=== PATIENT | female | born 1980 | race Caucasian/White ===

== ENCOUNTER 2016-06-01 12:28 | Emergency (ER) | payer BC, OTHER ==
[~2016-06-01] VITALS: Ht 157.5 cm; Wt 49.0 kg
[~2016-06-01 12:28] MED LIST: HYDR-3580 PO; HYOS0.1251 OR; OXYC1TAB13 PO; PROT40TA PO; Z.0.BCPILL PO; ZOFR4TAB3 SL
[2016-06-01 12:34] VITALS: BP 125/73; PULSE 90; RESP 16; TEMP 98.7; O2SAT 99
[2016-06-01] MEDS ORDERED: SODIUM CHLOR 0.9% 1000 ML INJ 1,000 ML IV SCH (13:07)
[2016-06-01 13:15] LABS: AUTOMATED NEUTROPHIL # 10.8 TH/MM3 (1.8-7.7); BASOPHIL # 0.1 TH/MM3 (0-0.2); BASOPHIL % 1.1 % (0.0-2.0); EOSINOPHIL % 0.2 % (0.0-4.0); HEMATOCRIT 40.8 % (35.0-46.0); LYMPH % 4.7 % (9.0-44.0); LYMPHOCYTE # 0.6 TH/MM3 (1.0-4.8); MEAN CELL VOLUME 85.6 FL (80.0-100.0); MEAN CORPUSCULAR HEMOGLOBIN 29.2 PG (27.0-34.0); MEAN CORPUSCULAR HGB CONC 34.2 % (32.0-36.0); PLATELET COUNT 318 TH/MM3 (150-450); RED BLOOD COUNT 4.77 MIL/MM3 (4.00-5.30); RED CELL DISTRIBUTION WIDTH 12.6 % (11.6-17.2); WHITE BLOOD COUNT 11.7 TH/MM3 (4.0-11.0)
[2016-06-01] MEDS ORDERED: FAMOTIDINE 20 MG/2 ML VIAL IV PUSH ONE (13:15)
[2016-06-01] MEDS ORDERED: ONDANSETRON HCL 4 MG/2 ML VIAL IVP ONE (13:15)
[2016-06-01] MEDS ORDERED: SODIUM CHLORIDE 0.9% FLUSH 5 ML FLUSH IVF PRN (13:15)
[2016-06-01 13:18] LABS: HEMO FLAGS DIFF FINAL
[2016-06-01 13:33] LABS: POTASSIUM 3.8 MEQ/L (3.5-5.1)
[2016-06-01 13:37] LABS: BICARBONATE 25.6 MEQ/L (21.0-32.0)
[2016-06-01 13:41] LABS: INDIRECT BILIRUBIN 0.5 MG/DL (0.0-0.8); TOTAL BILIRUBIN ADULT 0.6 MG/DL (0.2-1.0)
[2016-06-01 13:47] VITALS: RESP 16; O2SAT 98
[2016-06-01 13:47] LABS: BLOOD, URINE NEG (NEG); GLUCOSE,URINE NEG (NEG); NITRITE,URINE NEG (NEG); PH, URINE 6.5 (5.0-8.5)
[2016-06-01 13:49] LABS: KETONE, URINE 80 OR GREATER mg/dL (NEG)
[2016-06-01 13:57] VITALS: BP 124/72; PULSE 79; RESP 16; O2SAT 98
[2016-06-01] MEDS ORDERED: ONDANSETRON HCL 4 MG/2 ML VIAL IV PUSH ONE (14:00)
[2016-06-01 14:05] LABS: COMMENT (UR) CULT NOT INDICATED; COMMENT2 (UR) MUCOUS PRESENT; CULTURE IF INDICATED CULT NOT INDICATED; METHOD OF COLLECTION CLEAN CATCH; URINE COLOR YELLOW (YELLW/STRAW)
[2016-06-01] MEDS ORDERED: LIDOCAINE VISCOUS 2% SOLN 15 ML UDC PO ONE (14:15)
[2016-06-01] MEDS ORDERED: ALUMINUM/MAGNESIUM/SIMETH 30 ML CUP PO ONE (14:15)
[2016-06-01] MEDS ORDERED: DICYCLOMINE HCL 10 MG CAP PO ONE (15:15)
[2016-06-01] MEDS ORDERED: ZANT150T2 PO (15:16)
[2016-06-01] MEDS ORDERED: ZOFR4TAB3 SL (15:16)
[2016-06-01] MEDS ORDERED: DICY10 PO (15:16)
--- NOTE | 2016-06-01 15:16 | PD ---
HPI Chief Complaint: GI Complaint Time Seen by Provider: 13:00 Travel History International Travel<30 days: No Contact w/Intl Traveler<30days: No Traveled to known affect area: No History of Present Illness HPI Patient is a 35-year-old female comes in complaining of nausea, vomiting, diarrhea, abdominal pain. She says it started around 6 PM last night. She states that she started vomiting a few hours after that. She reports multiple episodes of vomiting as well as diarrhea. She does not recall seeing blood in the vomit or the stool. She complains of pain to her upper abdomen. She says she has had H. pylori in the past. 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 She denies fever or chills. She denies dysuria. She denies chest pain or shortness of breath. PFSH Past Medical History Medical History: Denies Significant Hx Diminished Hearing: No Gastrointestinal Disorders: Yes Immunizations Current: No Tetanus Vaccination: Unknown ?: Not LMP: 05/06/16 : 0 Ovarian Cysts: Yes Past Surgical History Surgical History: No Previous Surgery Social History Alcohol Use: No Tobacco Use: No Substance Use: No Allergies-Medications (Allergen,Severity, Reaction): Coded Allergies: Codeine (Verified Allergy, Intermediate, RASH, 06/01/16) Uncoded Allergies: COUGH MED (Adverse Reaction, Mild, Hotflash, 06/04/10) Reported Meds & Prescriptions Reported Meds & Active Scripts Active No Active Prescriptions or Reported Medications Review of Systems Except as stated in HPI: all other systems reviewed are Neg General / Constitutional: No: Fever, Chills HENT: No: Headaches, Lightheadedness Cardiovascular: No: Chest Pain or Discomfort Respiratory: No: Shortness of Breath Gastrointestinal: Positive: Nausea, Vomiting, Diarrhea, Abdominal Pain Genitourinary: No: Urgency, Frequency, Dysuria Skin: No Rash, No Change in Pigmentation Neurologic: No: Weakness, Dizziness Physical Exam Narrative GENERAL: Awake and alert, in no acute distress. SKIN: Warm and dry. HEAD: Atraumatic. Normocephalic. EYES: Pupils equal and round. No scleral icterus. ENT: Mucous membranes pink and moist. NECK: Trachea midline. No JVD. CARDIOVASCULAR: Regular rate and rhythm. No murmur appreciated. RESPIRATORY: No accessory muscle use. Clear to auscultation. Breath sounds equal bilaterally. GASTROINTESTINAL: Abdomen soft, nondistended. Mildly tender to the epigastric area. No rebound or guarding. MUSCULOSKELETAL: No obvious deformities. No clubbing. No cyanosis. No edema. NEUROLOGICAL: Awake and alert. No obvious cranial nerve deficits. Motor grossly within normal limits. Normal speech. PSYCHIATRIC: Appropriate mood and affect; insight and judgment normal. Data Data Last Documented VS Vital Signs Date Time Temp Pulse Resp B/P Pulse Ox O2 Delivery O2 Flow Rate FiO2 06/01/16 13:57 79 16 124/72 98 Room Air 06/01/16 12:34 98.7 Orders Urinalysis - C+S If Indicated (06/01/16 12:36) Ed Urine Pregnancytest Poc (06/01/16 12:36) Basic Metabolic Panel (Bmp) (06/01/16 13:07) Complete Blood Count With Diff (06/01/16 13:07) Lipase (06/01/16 13:07) Iv Access Insert/Monitor (06/01/16 13:07) Ecg Monitoring (06/01/16 13:07) Oximetry (06/01/16 13:07) Ondansetron Inj (Zofran Inj) (06/01/16 13:15) Sodium Chlor 0.9% 1000 Ml Inj (Ns 1000 M (06/01/16 13:07) Sodium Chloride 0.9% Flush (Ns Flush) (06/01/16 13:15) Famotidine Inj (Pepcid Inj) (06/01/16 13:15) Hepatic Functional Panel (06/01/16 13:07) Ondansetron Inj (Zofran Inj) (06/01/16 14:00) Al-Mag Hy-Si 40-40-4 Mg/Ml Liq (Mag-Al P (06/01/16 14:15) Lidocaine 2% Viscous (Xylocaine 2% Visco (06/01/16 14:15) Dicyclomine (Bentyl) (06/01/16 15:15) Labs Laboratory Tests Test 06/01/16 06/01/16 13:10 13:40 White Blood Count 11.7 TH/MM3 Red Blood Count 4.77 MIL/MM3 Hemoglobin 13.9 GM/DL Hematocrit 40.8 % Mean Corpuscular Volume 85.6 FL Mean Corpuscular Hemoglobin 29.2 PG Mean Corpuscular Hemoglobin 34.2 % Concent Red Cell Distribution Width 12.6 % Platelet Count 318 TH/MM3 Mean Platelet Volume 8.3 FL Neutrophils (%) (Auto) 92.0 % Lymphocytes (%) (Auto) 4.7 % Monocytes (%) (Auto) 2.0 % Eosinophils (%) (Auto) 0.2 % Basophils (%) (Auto) 1.1 % Neutrophils # (Auto) 10.8 TH/MM3 Lymphocytes # (Auto) 0.6 TH/MM3 Monocytes # (Auto) 0.2 TH/MM3 Eosinophils # (Auto) 0.0 TH/MM3 Basophils # (Auto) 0.1 TH/MM3 CBC Comment DIFF FINAL Differential Comment Sodium Level 140 MEQ/L Potassium Level 3.8 MEQ/L Chloride Level 105 MEQ/L Carbon Dioxide Level 25.6 MEQ/L Anion Gap 9 MEQ/L Blood Urea Nitrogen 12 MG/DL Creatinine 0.68 MG/DL Estimat Glomerular Filtration 99 ML/MIN Rate Random Glucose 115 MG/DL Calcium Level 8.5 MG/DL Total Bilirubin 0.6 MG/DL Direct Bilirubin 0.1 MG/DL Indirect Bilirubin 0.5 MG/DL Aspartate Amino Transf 14 U/L (AST/SGOT) Alanine Aminotransferase 17 U/L (ALT/SGPT) Alkaline Phosphatase 70 U/L Total Protein 8.1 GM/DL Albumin 3.9 GM/DL Lipase 114 U/L Urine Collection Type CLEAN CATCH Urine Color YELLOW Urine Turbidity SLIGHT Urine pH 6.5 Urine Specific [place] 1.030 Urine Protein 30 mg/dL Urine Glucose (UA) NEG mg/dL Urine Ketones 80 OR GREATER mg/dL Urine Occult Blood NEG Urine Nitrite NEG Urine Bilirubin NEG Urine Leukocyte Esterase NEG Urine Squamous Epithelial 6-8 /hpf Cells Urine Amorphous Sediment FEW Microscopic Urinalysis Comment CULT NOT INDICATED Urine Collection Time 1340 MDM Medical Decision Making Medical Screen Exam Complete: Yes Emergency Medical Condition: Yes Differential Diagnosis Gastroenteritis versus gastritis versus cholecystitis versus pancreatitis Narrative Course Patient is a 35-year-old female who comes in complaining of nausea, vomiting, diarrhea, abdominal pain. Exam shows mild epigastric tenderness. IV established, labs sent. Patient given IV fluids, famotidine, Zofran. Labs show no acute abnormalities. Patient reports feeling better after medications, but still has some waves of nausea. Given second dose of Zofran. Patient given GI cocktail with improvement of her symptoms. She says she still occasionally gets cramping pain in her belly. We'll try Bentyl for symptomatic relief. Patient advised she will continue to have diarrhea for a few more days and might have this cramping pain. we'll discharge with prescriptions for Zofran as well as Bentyl and Zantac. Patient advised to drink plenty of fluids. Advised if she feels hungry she needs to eat a bland diet. Advised follow-up with her doctors. Advised to return to the ED as needed for any worsening symptoms. Patient is comfortable with discharge at this time. Diagnosis Primary Impression: Nausea, vomiting and diarrhea Patient Instructions: Acute Nausea and Vomiting (ED), General Instructions Additional Instructions: Drink plenty of fluids. If you are hungry, eat a bland diet. Take Zofran as needed for nausea. Follow up with your doctor. Return to the ED as needed for any worsening symptoms. Scripts Dicyclomine (Bentyl)10 Mg Cap10 Mg PO TID PRN (Bowel Management) #15 CAP Ref 0 Prov:Faina Jensen MD 06/01/16 Ranitidine (Zantac)150 Mg Qxl121 Mg PO BID #20 TAB Ref 0 Prov:Faina Jensen MD 06/01/16 Ondansetron Odt (Zofran Odt)4 Mg Tab4 Mg SL Q6HR PRN (Nausea/Vomiting) #10 TAB Ref 0 Prov:Faina Jensen MD 06/01/16 Disposition: 01 DISCHARGE HOME Condition: Stable Faina Jensen MD Jun 01, 2016 15:16
== END 2016-06-01 15:38 | disposition home or self-care (01) ==
LOC: PHED 12:28
DX: R11.2 Nausea with vomiting, unspecified (principal); R19.7 Diarrhea, unspecified; R10.9 Unspecified abdominal pain
CPT/HCPCS: 80048; 80076; 81001; 83690; 84703; 85025; 96361; 96374; 96375; 96376; 99284; J2405; J7030